=== PATIENT | male | born 1950 ===

== ENCOUNTER 2018-05-23 13:15 | Emergency (ER) | payer OTHER ==
[~2018-05-23] VITALS: Ht 165.1 cm; Wt 78.9 kg
== END 2018-05-23 18:06 | disposition home or self-care (01) ==
LOC: ER 13:15
DX: S61.412A Laceration without foreign body of left hand, initial encounter (principal); W45.8XXA Other foreign body or object entering through skin, initial encounter; Y93.89 Activity, other specified; Y92.89 Other specified places as the place of occurrence of the external cause; Y99.8 Other external cause status

== ENCOUNTER 2018-06-03 12:27 | Emergency (ER) | payer OTHER ==
[~2018-06-03] VITALS: Ht 162.6 cm; Wt 78.9 kg
[2018-06-03] MEDS ORDERED: LIPITOR20 MG PO (12:40)
[2018-06-03] MEDS ORDERED: PROSCAR5 MG PO (12:41)
== END 2018-06-03 14:02 | disposition home or self-care (01) ==
LOC: ER 12:27
DX: Z48.02 Encounter for removal of sutures (principal)